=== PATIENT | female | born 1990 | race Caucasian/White ===

== ENCOUNTER 2018-05-24 18:28 | Emergency (ER) | payer OTHER ==
[2018-05-24 18:54] VITALS: BP 137/89; PULSE 87; RESP 16; TEMP 97.8; O2SAT 99
== END 2018-05-24 19:55 | disposition home or self-care (01) ==
LOC: ED 18:28
DX: J34.0 Abscess, furuncle and carbuncle of nose (principal)
CPT/HCPCS: 99282; 99283